=== PATIENT | male | born 1980 | race Caucasian/White ===

== ENCOUNTER 2022-05-16 07:08 | Inpatient (IN) | payer MEDICARE, OTHER ==
[~2022-05-16] VITALS: Ht 172.7 cm; Wt 92.5 kg
[~2022-05-16 07:08] MED LIST: LODINE CAP 300300 MG PO
[2022-05-16 08:11] LABS: RED BLOOD COUNT 4.56 M/UL (4.20-5.50); WHITE BLOOD COUNT 9.9 K/UL (4.5-11.0)
[2022-05-16 08:28] LABS: BUN/CREATININE RATIO 17 (0-10)
[2022-05-16] MEDS ORDERED: LEVETIRACETAM1000 MG PO (12:10)
[2022-05-16] MEDS ORDERED: ATORVASTATIN CA40 MG PO (12:11)
[2022-05-16] MEDS ORDERED: ASPIRIN EC81 MG PO (12:11)
[2022-05-16] MEDS ORDERED: OMEPRAZOLE20 MG PO (12:11)
[2022-05-17 10:26] LABS: HEMOGLOBIN 13.2 gm/dl (14.0-17.5)
[2022-05-17 10:32] LABS: RED BLOOD COUNT 4.04 M/UL (4.20-5.50); WHITE BLOOD COUNT 6.2 K/UL (4.5-11.0)
[2022-05-17 10:47] LABS: BUN/CREATININE RATIO 15 (0-10)
[2022-05-18 06:39] LABS: HEMOGLOBIN 12.9 gm/dl (14.0-17.5); RED BLOOD COUNT 4.01 M/UL (4.20-5.50); WHITE BLOOD COUNT 7.6 K/UL (4.5-11.0)
[2022-05-18 07:16] LABS: BUN/CREATININE RATIO 11 (0-10)
[2022-05-19 06:24] LABS: HEMOGLOBIN 13.1 gm/dl (14.0-17.5); RED BLOOD COUNT 4.04 M/UL (4.20-5.50); WHITE BLOOD COUNT 7.2 K/UL (4.5-11.0)
[2022-05-19 07:10] LABS: BUN/CREATININE RATIO 6 (0-10)
[2022-05-19] MEDS ORDERED: TAB-A-VITE TA400 MC1 PO (09:11)
[2022-05-19] MEDS ORDERED: MAG-OX 400 TAB400 MG PO (09:11)
[2022-05-19] MEDS ORDERED: ZOFRAN 4 MG TAB4 MG PO (09:11)
[2022-05-19] MEDS ORDERED: COLACE100 MG PO (09:19)
[2022-05-19] MEDS ORDERED: COMBIVENT RESPIM4 GM INH (09:19)
[2022-05-19] MEDS ORDERED: NICOTINE PATCH1 EAC2 TD (09:23)
[2022-05-19] MEDS ORDERED: HYDROCODON-ACE1 EAC4 PO (09:23)
== END 2022-05-19 15:47 | disposition home or self-care (01) | DRG 390 ==
LOC: ER1 07:08 → CDU 10:08 → MED SURG 4 10:08
PROVIDERS: Family Medicine; Physician Assistant; ADMIT Internal Medicine
DX: K56.600 Partial intestinal obstruction, unspecified as to cause (principal); N20.0 Calculus of kidney; I10 Essential (primary) hypertension; G40.909 Epilepsy, unspecified, not intractable, without status epilepticus; Z20.822 Contact with and (suspected) exposure to COVID-19; J44.9 Chronic obstructive pulmonary disease, unspecified; E78.5 Hyperlipidemia, unspecified; F10.10 Alcohol abuse, uncomplicated; J45.909 Unspecified asthma, uncomplicated; Z87.442 Personal history of urinary calculi; Z87.891 Personal history of nicotine dependence; Z79.82 Long term (current) use of aspirin; Z90.49 Acquired absence of other specified parts of digestive tract; Z98.890 Other specified postprocedural states; Z82.49 Family history of ischemic heart disease and other diseases of the circulatory system; Z80.0 Family history of malignant neoplasm of digestive organs
CPT/HCPCS: 36415; 80048; 80053; 81001; 83605; 83690; 85025; 85027; 96372; 96375; 96376; C9113; G0378; J1650; J1885; J1953; J2270; J2405; Q9967